=== PATIENT | female | born 1935 | race Caucasian/White ===

== ENCOUNTER 2018-10-01 13:27 | Emergency (ER) | payer OTHER ==
[~2018-10-01] VITALS: Ht 157.5 cm; Wt 111.6 kg
[2018-10-01] MEDS ORDERED: MICARDIS HCT 81 EAC1 (14:09)
[2018-10-01] MEDS ORDERED: CRESTOR5 MG (14:09)
[2018-10-01] MEDS ORDERED: SERTRALINE HCL50 MG (14:09)
[2018-10-01] MEDS ORDERED: ARICEPT10 MG (14:09)
[2018-10-01] MEDS ORDERED: LEVOXYL50 MCG (14:10)
[2018-10-01] MEDS ORDERED: NAMENDA5 MG (14:10)
[2018-10-01] MEDS ORDERED: GLIPIZIDE XL2.5 MG (14:11)
[2018-10-01] MEDS ORDERED: LASIX40 MG (14:11)
== END 2018-10-01 17:26 | disposition home or self-care (01) ==
LOC: ER 13:27
DX: G89.11 Acute pain due to trauma (principal); M25.562 Pain in left knee; M25.561 Pain in right knee